=== PATIENT | female | born 1985 | race Hispanic/Latino ===

== ENCOUNTER 2022-01-22 15:34 | Emergency (ER) | payer SELFPAY ==
[2022-01-22] MEDS ORDERED: NA CHLORIDE 0.9% 1,000 ML ONE (16:55)
[2022-01-22 17:07] LABS: Absolute Lymphocytes (CBC) 1.7 K/uL (0.7-4.9); Hematocrit 38.1 % (36.0-45.0); Lymphocytes % 25.6 % (15.3-44.8); MCV 86.3 fL (80-100); MPV 7.8 fL (7.6-11.3); RBC Red Blood Cell Count 4.41 M/uL (3.86-4.86)
[2022-01-22 17:21] LABS: Urine Blood Negative (Negative); Urine Glucose Negative (Negative); Urine Protein Negative (Negative); Urine Specific Gravity 1.025 (1.005-1.030)
[2022-01-22 17:21] LABS: ALT/SGPT 23 U/L (12-78); AST/SGOT 22 U/L (15-37); Albumin 3.7 g/dL (3.4-5.0); Alkaline Phosphatase 72 U/L (45-117); BUN Blood Urea Nitrogen 8 mg/dL (7-18); Bicarbonate 29 mmol/L (21-32); Bilirubin Direct 0.1 mg/dL (0-0.2); Bilirubin Total 0.4 mg/dL (0.2-1.0); Glomerular Filtration Rate 115 ml/min (=/>90); Glucose Level 95 mg/dL (74-106); Potassium 3.7 mmol/L (3.5-5.1); Sodium Level 138 mmol/L (136-145)
[2022-01-22 17:22] LABS: Troponin High Sensitivity < 3.0 pg/mL (<58.9)
--- NOTE | 2022-01-22 17:31 | RAD REPORT ---
EXAM DESCRIPTION: CT - Head Brain Wo Cont - 01/22/2022 5:15 pm CLINICAL HISTORY: Syncope COMPARISON: None. TECHNIQUE: Computed axial tomography of the head was obtained. IV contrast was not requested. All CT scans are performed using dose optimization technique as appropriate and may include automated exposure control or mA/KV adjustment according to patient size. FINDINGS: An intracranial bleed is not seen . The ventricles are normal in caliber. No significant hypodense areas within the brain visualized No extra-axial fluid collection is noted. Fluid within the sinuses/ mastoids is not seen. IMPRESSION: No acute intracranial abnormality is seen. If patient's symptoms persist MRI of the bra in would be recommended.
[2022-01-22 17:40] LABS: Urine Specific Gravity/Preg 1.025 (1.005-1.030)
--- NOTE | 2022-01-22 18:03 | ER ---
Nurse's Notes [facility] Name: Caro Lamb Age: 36 yrs Sex: Female : 1985 Arrival Date: 01/22/2022 Time: 15:43 Bed 12 Private MD: Diagnosis: Syncope Near;Palpitations Presentation: 01/22 16:12 Chief complaint: Patient states: "I was at work and I started feeling lightheaded and I vg1 passed out it turned black for like 10 seconds" Denies falling or hitting head. Denies NV. Stated "I dont feel dizzy right now but I feel weird". Coronavirus screen: Vaccine status: Patient reports being unvaccinated. Client denies travel out of the [place] in the last 14 days. Ebola Screen: Patient denies exposure to infectious person. Patient denies travel to an Ebola-affected area in the 21 days before illness onset. Initial Sepsis Screen: Does the patient meet any 2 criteria? No. Patient's initial sepsis screen is negative. Does the patient have a suspected source of infection? No. Patient's initial sepsis screen is negative. Risk Assessment: Do you want to hurt yourself or someone else? Patient reports no desire to harm self or others. Onset of symptoms was January 22, 2022 at 14:30. 16:12 Method Of Arrival: Ambulatory vg1 16:12 Acuity: YOSELYN 3 vg1 Triage Assessment: 16:15 General: Appears comfortable, Behavior is calm, cooperative. Pain: Denies pain. Neuro: vg1 Level of Consciousness is awake, alert, obeys commands, Oriented to person, place, time, situation, Reports dizziness. Cardiovascular: Patient's skin is warm and dry. 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 - Social history:: Smoking status: Patient denies any tobacco usage or history of. Screenin:29 Abuse screen: Denies threats or abuse. Denies injuries from another. Nutritional ld1 screening: No deficits noted. Tuberculosis screening: No symptoms or risk factors identified. Fall Risk None identified. Assessment: 17:29 Reassessment: Patient appears in no apparent distress at this time. Patient and/or ld1 family updated on plan of care and expected duration. Pain level reassessed. Patient is alert, oriented x 3, equal unlabored respirations, skin warm/dry/pink. General: Appears in no apparent distress. comfortable, Behavior is calm, cooperative, appropriate for age. Pain: Denies pain. Neuro: Level of Consciousness is awake, alert, obeys commands, Oriented to person, place, time, situation. Cardiovascular: Capillary refill < 3 seconds Patient's skin is warm and dry. Rhythm is sinus rhythm. Respiratory: Airway is patent Respiratory effort is even, unlabored. GI: Abdomen is flat, non-distended. : No signs and/or symptoms were reported regarding the genitourinary system. EENT: No signs and/or symptoms were reported regarding the EENT system. Derm: No signs and/or symptoms reported regarding the dermatologic system. Musculoskeletal: No signs and/or symptoms reported regarding the musculoskeletal system. Vital Signs: 16:12 BP 113 / 92; Pulse 80; Resp 16; Temp 98.6; Pulse Ox 100% ; Weight 82.55 kg; Height 5 vg1 ft. 5 in. (165.10 cm); Pain 0/10; 17:21 BP 128 / 97 LA Supine (auto/reg); Pulse 69; Pulse Ox 100% on R/A; ld1 17:24 BP 132 / 87 LA Sitting (auto/reg); Pulse 71; Pulse Ox 100% on R/A; ld1 17:27 BP 125 / 88 LA Standing (auto/reg); Pulse 66; Pulse Ox 100% ; ld1 16:12 Body Mass Index 30.29 (82.55 kg, 165.10 cm) vg1 ED Course: 15:43 Patient arrived in ED. mr 15:50 Maria E Olivera FNP is [facility]. jh7 15:50 Ismael Owens DO is Attending Physician. jh7 16:15 Triage completed. vg1 16:15 Arm band placed on. vg1 16:24 EKG completed in triage. Results shown to MD. vg1 16:53 Inserted saline lock: 20 gauge in right forearm, using aseptic technique. Blood kc6 collected. 16:53 Troponin HS Sent. kc6 16:54 Basic Metabolic Panel Sent. kc6 16:54 CBC with Diff Sent. kc6 16:54 Hepatic Function Sent. kc6 17:02 Marie Eden, RN is Primary Nurse. ld1 17:16 CT Head Brain wo Cont In Process Unspecified. EDMS 17:29 Patient has correct armband on for positive identification. Placed in gown. Bed in low ld1 position. Call light in reach. Side rails up X2. 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 Pulse ox on. NIBP on. Door closed. Noise minimized. Warm blanket given. 17:29 No provider procedures requiring assistance completed. ld1 18:02 Facundo Hussein MD is Referral Physician. [facility] 18:18 IV discontinued, intact, bleeding controlled, No redness/swelling at site. ld1 Administered Medications: 16:51 Drug: NS 0.9% 1000 ml Route: IV; Rate: 1 bolus; Site: right antecubital; ld1 Medication: 17:29 VIS not applicable for this client. ld1 Point of Care Testing: Blood Glucose: 16:24 Blood Glucose: 94 mg/dL; vg1 Ranges: Outcome: 18:02 Discharge ordered by . jh7 18:16 Discharged to home ambulatory. ld1 18:16 Condition: stable 18:16 Discharge instructions given to patient, family, Instructed on discharge instructions, follow up and referral plans. Demonstrated understanding of instructions, follow-up care. 18:20 Patient left the ED. ld1 Signatures: Dispatcher [employer] [facility] Janeth ConnorGloria, RN MCKENNA 1 Marie Eden, MCKENNA RN ld1 Maria E Olivera, TECHNICAL EXPERT TECHNICAL EXPERT Michelle Leyva 6 Corrections: (The following items were deleted from the chart) 16:15 16:12 Onset of symptoms was January 22, 2022 [facility]
--- NOTE | 2022-01-22 18:03 | EDPHYS ---
Physician Documentation [facility] Name: Caro Lamb Age: 36 yrs Sex: Female : 1985 Arrival Date: 01/22/2022 Time: 15:43 Bed 12 Private MD: ED Physician Ismael Owens HPI: 01/22 16:20 This 36 yrs old Female presents to ER via Ambulatory with complaints of jh7 Dizziness. 16:20 The patient presents with feeling faint, lightheadedness. Onset: The symptoms/episode jh7 began/occurred acutely. Patient reports that while she was at work she suddenly felt palpitations and lightheaded. Reports that she blacked out for a second, but did not fall or hit the ground. States that she feels much better now, but is still experiencing some mild dizziness.. 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 - Social history:: Smoking status: Patient denies any tobacco usage or history of. ROS: 16:20 Constitutional: Negative for fever, chills, and weight loss, ENT: Negative for injury, jh7 pain, and discharge, Neck: Negative for injury, pain, and swelling, Cardiovascular: Negative for chest pain, palpitations, and edema, Respiratory: Negative for shortness of breath, cough, wheezing, and pleuritic chest pain, Abdomen/GI: Negative for abdominal pain, nausea, vomiting, diarrhea, and constipation, Back: Negative for injury and pain, Skin: Negative for injury, rash, and discoloration. 16:20 Neuro: Positive for dizziness, near syncope, Negative for altered mental status, headache, numbness, seizure activity, tingling, weakness. 16:20 All other systems are negative. Exam: 16:20 Constitutional: This is a well developed, well nourished patient who is awake, alert, jh7 and in no acute distress. Head/Face: Normocephalic, atraumatic. ENT: Nares patent. No nasal discharge, no septal abnormalities noted. Tympanic membranes are normal and external auditory canals are clear. Oropharynx with no redness, swelling, or masses, exudates, or evidence of obstruction, uvula midline. Mucous membranes moist. Neck: Trachea midline, no thyromegaly or masses palpated, and no cervical lymphadenopathy. Supple, full range of motion without nuchal rigidity, or vertebral point tenderness. No Meningismus. Cardiovascular: Regular rate and rhythm with a normal S1 and S2. No gallops, murmurs, or rubs. Normal PMI, no JVD. No pulse deficits. Respiratory: Lungs have equal breath sounds bilaterally, clear to auscultation and percussion. No rales, rhonchi or wheezes noted. No increased work of breathing, no retractions or nasal flaring. Abdomen/GI: Soft, non-tender, with normal bowel sounds. No distension or tympany. No guarding or rebound. No evidence of tenderness throughout. Back: No spinal tenderness. No costovertebral tenderness. Full range of motion. Skin: Warm, dry with normal turgor. Normal color with no rashes, no lesions, and no evidence of cellulitis. Neuro: Awake and alert, GCS 15, oriented to person, place, time, and situation. Cranial nerves II-XII grossly intact. Motor strength 5/5 in all extremities. Sensory grossly intact. Cerebellar exam normal. Normal gait. Vital Signs: 16:12 BP 113 / 92; Pulse 80; Resp 16; Temp 98.6; Pulse Ox 100% ; Weight 82.55 kg; Height 5 vg1 ft. 5 in. (165.10 cm); Pain 0/10; 17:21 BP 128 / 97 LA Supine (auto/reg); Pulse 69; Pulse Ox 100% on R/A; ld1 17:24 BP 132 / 87 LA Sitting (auto/reg); Pulse 71; Pulse Ox 100% on R/A; ld1 17:27 BP 125 / 88 LA Standing (auto/reg); Pulse 66; Pulse Ox 100% ; ld1 16:12 Body Mass Index 30.29 (82.55 kg, 165.10 cm) vg1 MDM: 16:21 Patient medically screened. [facility] 18:20 Data reviewed: vital signs, nurses notes, lab test result(s), EKG, radiologic studies, [facility] CT scan. Data interpreted: Pulse oximetry: is 100 %. Interpretation: normal. Counseling: I had a detailed discussion with the patient and/or guardian regarding: the historical points, exam findings, and any diagnostic results supporting the discharge/admit diagnosis, to return to the emergency department if symptoms worsen or persist or if there are any questions or concerns that arise at home. Response to treatment: the patient's symptoms have resolved after treatment. Special discussion: Based on the patient's history, exam, and Dx evaluation, there is no indication for emergent intervention or inpatient Tx. It is understood by the patient/guardian that if the Sx's persist or worsen they need to return immediately for re-evaluation. 01/22 16:22 Order name: Basic Metabolic Panel; Complete Time: 17:55 [facility] 01/22 16:22 Order name: CBC with Diff; Complete Time: 17: [facility] 01/22 16:22 Order name: Hepatic Function; Complete Time: 17:55 [facility] 01/22 16:22 Order name: Troponin HS; Complete Time: 17:55 [facility] 01/22 16:36 Order name: Glucose, Ancillary Testing; Complete Time: 17:22 [facility] 01/22 17:21 Order name: Urine Dipstick-Ancillary; Complete Time: 17:22 [facility] 01/22 16:22 Order name: CT Head Brain wo Cont; Complete Time: 17:55 [facility] 01/22 16:22 Order name: EKG; Complete Time: 16:23 [facility] 01/22 16:22 Order name: Cardiac monitoring; Complete Time: 17:27 [facility] 01/22 16:22 Order name: EKG - Nurse/Tech; Complete Time: 17:03 [facility] 01/22 16:22 Order name: IV Saline Lock; Complete Time: 16:53 [facility] 01/22 16:22 Order name: Labs collected and sent; Complete Time: 16:53 [facility] 01/22 17:28 Order name: Urine --Ancillary (enter results); Complete Time: 17:55 01/22 16:22 Order name: NPO; Complete Time: 17: [facility] 01/22 16:22 Order name: O2 Per Protocol; Complete Time: 17:02 [facility] 01/22 16:22 Order name: O2 Sat Monitoring; Complete Time: 17: [facility] 01/22 16:22 Order name: Urine Dipstick-Ancillary (obtain specimen); Complete Time: 17:19 [facility] 01/22 16:22 Order name: Blood Glucose Level; Complete Time: 16:51 [facility] 01/22 16:22 Order name: Orthostatic Blood Pressure; Complete Time: 17:27 EC:20 Rate is 80 beats/min. Rhythm is regular. QRS [place] is Normal. [place] interval is normal. QRS jh7 interval is normal. QT interval is normal. No Q waves. No ST changes noted. Clinical impression: Sinus arrythmia. Administered Medications: :51 Drug: NS 0.9% 1000 ml Route: IV; Rate: 1 bolus; Site: right antecubital; ld1 Point of Care Testing: Blood Glucose: 16:24 Blood Glucose: 94 mg/dL; vg1 Ranges: Critical Glucose Levels:Adult <50 mg/dl or >400 mg/dl <40 mg/dl or >180 mg/dl Disposition: :13 Co-signature as Attending Physician, Ismael Owens DO I was immediately available on-site ms3 in the Emergency Department for consultation in the care of the patient. . Disposition Summary: 01/22/22 18:02 Discharge Ordered Location: Home [facility] Problem: new [facility] Symptoms: have improved [facility] Condition: Stable [facility] Diagnosis - Syncope Near [facility] - Palpitations [facility] Followup: [facility] - With: Facundo Hussein MD - When: 2 - 3 days - Reason: Recheck today's complaints Discharge Instructions: - Discharge Summary Sheet [facility] - Near-Syncope [facility] - Palpitations, [id number] [facility] Forms: - Medication Reconciliation Form 7 - Thank You Letter [facility] - Work release form ld1 Signatures: Dispatcher [employer] Gloria Engel, RN RN vg1 Ismael Owens DO DO ms3 Marie Eden RN RN ld1 Maria E Olivera FNP FNP [facility]
[2022-01-22 18:56] VITALS: TEMP 98.6; O2SAT 100
[2022-01-22 19:01] VITALS: BP 125/88
--- NOTE | 2022-01-23 08:15 | EKG ---
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
== END 2022-01-22 18:20 | disposition home or self-care (01) ==
LOC: ER 15:34
DX: R55 Syncope and collapse (principal); R00.2 Palpitations
CPT/HCPCS: 36415; 70450; 80048; 80076; 81003; 81025; 82947; 84484; 85025; 93005; 99284; J7030